=== PATIENT | female | born 1955 | race Caucasian/White ===

== ENCOUNTER 2017-04-08 13:42 | Emergency (ER) | payer OTHER ==
[~2017-04-08] VITALS: Ht 162.6 cm; Wt 54.4 kg
[~2017-04-08 13:42] MED LIST: PAROXETINE HCL20 MG NG
[2017-04-08] MEDS ORDERED: IBUPROFEN800 MG PO (14:37)
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
[2017-04-08 14:52] VITALS: BP 137/100
--- NOTE | 2017-04-12 05:48 | RADIOLOGY REPORT PS360 ---
HUMERUS-RT HISTORY: INJURY X 2 DAYS AGO ORDERING PHYSICIAN: CHAYA LINDER APRN PATIENT AGE: 61 years COMPARISON: None FINDINGS: There is a nondisplaced fracture extending transversely through the humeral head and also with a longitudinal component along the lateral aspect of the humeral head. No evidence of dislocation or displacement. IMPRESSION: Nondisplaced fracture of the humeral head with longitudinal extension into the lateral aspect of the humeral neck
== END 2017-04-08 14:53 | disposition home or self-care (01) ==
LOC: ER 13:42 → UTC 14:05 → ER 14:05 → UTC 14:53
DX: S40.021A Contusion of right upper arm, initial encounter (principal); Y04.2XXA Assault by strike against or bumped into by another person, initial encounter; Y92.009 Unspecified place in unspecified non-institutional (private) residence as the place of occurrence of the external cause; F17.210 Nicotine dependence, cigarettes, uncomplicated